=== PATIENT | female | born 1990 | race Caucasian/White ===

== ENCOUNTER → 2018-11-04 12:47 | Outpatient (CLI) | payer BC, SELFPAY ==
--- NOTE | 2018-11-04 12:56 | XR_ITS ---
XR hip LT 2-3V w/pelvis HISTORY: ITS.REASON: HIP PAIN,WEAKNESS, ORDERING PHYSICIAN: Cinthya Landon PATIENT AGE: 28 years COMPARISON: None FINDINGS: No fracture or dislocation is evident. No significant degenerative change. No lytic or blastic change. Unremarkable soft tissues IMPRESSION: Negative hip
== END ==
PROVIDERS: PCP Nurse Practitioner Family; Visit Provider Nurse Practitioner Family
DX: M25.552 Pain in left hip (principal); R29.898 Other symptoms and signs involving the musculoskeletal system; T74.91XD Unspecified adult maltreatment, confirmed, subsequent encounter
CPT/HCPCS: 73502

== ENCOUNTER → 2020-05-04 13:02 | Outpatient (CLI) | payer BC, SELFPAY ==
--- NOTE | 2020-05-04 13:10 | US_ITS ---
PROCEDURE: US TRANSVAGINAL CLINICAL INDICATION: US Pelvic pain COMPARISON: No exams were available for comparison FINDINGS: UTERUS: 8cm x 5cmx 4cm with a combined endometrial thickness of 2.2mm LEFT OVARY: [id number] with a volume of 1.7ml. RIGHT OVARY: [id number] with a volume of 5.5ml. Small bilateral ovarian follicles with no dominant adnexal mass or cul-de-sac fluid IMPRESSION: Negative pelvic ultrasound Dictated by: Ash Gray MD 05/04/2020 18:01 Ash Gray MD in [place] 05/04/2020 18:01
== END ==
PROVIDERS: PCP Emergency Medicine; Visit Provider Obstetrics & Gynecology
DX: R10.2 Pelvic and perineal pain (principal)
CPT/HCPCS: 76830

== ENCOUNTER → 2020-06-02 11:45 | Outpatient (CLI) | payer BC, SELFPAY ==
[2020-06-02 13:10] LABS: Basophils % 0.2 % (0.1-2.0); Eosinophils # 0.2 K/mm3 (0.0-0.4); Eosinophils % 1.8 % (0.1-12.0); Hematocrit 46.3 % (37.0-47.0); Hemoglobin 15.2 g/dL (12.2-16.2); Lymphocytes # 2.2 K/mm3 (0.7-4.5); Lymphocytes % 24.5 % (10-50); Mean Corpuscular HGB Conc 32.9 g/dL (31.8-35.4); Mean Corpuscular Volume 100.4 fl (81-99); Monocytes # 0.3 K/mm3 (0.1-1.0); Monocytes % 3.5 % (1.7-9.3); Neutrophils # 6.3 K/mm3 (1.8-7.8); Platelet Count 243 K/mm3 (142-424); Red Blood Count 4.61 M/mm3 (4.20-5.40); Red Cell Distribution Width 13.7 % (11.5-17.5); White Blood Count 8.9 K/mm3 (4.8-10.8)
[2020-06-02 13:19] LABS: HCG Qualitative, Serum Negative (Negative)
[2020-06-02 13:21] LABS: Alanine Aminotransferase 17 U/L (12-78); Albumin Level 4.6 g/dl (3.5-5.0); Albumin/Globulin Ratio 1.4 (1.1-1.8); Alkaline Phosphatase 53 U/L (38-126); Anion Gap 14.9 mEq/L (5-15); Aspartate Amino Transferase 24 U/L (14-36); Bilirubin,Total 0.5 mg/dl (0.2-1.3); Blood Urea Nitrogen 5 mg/dl (7-17); Calcium 9.6 mg/dl (8.4-10.2); Carbon Dioxide 25 mmol/L (22.0-30.0); Chloride 106 mmol/L (98-107); Estimated Glomerular Filt Rate 84 ml/min (>60); GFR (African American) 101 ML/MIN (>60); Globulin 3.2 g/dL (1.3-3.2); Glucose 90 mg/dl (74-100); Potassium 3.9 mmoL/L (3.5-5.1); Sodium 142 mmol/L (136-145); Total Protein,Serum 7.8 g/dl (6.3-8.2)
[2020-06-02 14:34] LABS: Coronavirus 19 IgG Antibody Negative (Negative); Coronavirus 19 IgM Antibody Negative (Negative)
[2020-06-02 14:39] LABS: Amphetamine/Metha Screen,Urine Negative ng/ml (<1000); Benzodiazepines Screen,Urine Negative ng/ml (<200)
[2020-06-02 14:40] LABS: Barbiturates Screen,Urine Negative ng/ml (<200)
[2020-06-02 14:41] LABS: Cannabinoid Screen,Urine Negative ng/ml (<50); Cocaine Screen,Urine Negative ng/ml (<300)
[2020-06-02 14:42] LABS: Methadone Screen,Urine Negative ng/ml (<300); Opiate Screen,Urine Negative ng/ml (<300)
[2020-06-02 14:43] LABS: Phencyclidine Screen,Urine Negative ng/ml (<25)
== END ==
PROVIDERS: Visit Provider Obstetrics & Gynecology
DX: Z01.818 Encounter for other preprocedural examination (principal); R10.2 Pelvic and perineal pain; N93.8 Other specified abnormal uterine and vaginal bleeding; N94.6 Dysmenorrhea, unspecified
CPT/HCPCS: 36415; 80053; 80305; 84703; 85025; 86328

== ENCOUNTER 2020-06-05 06:12 | Day surgery (SDC) | payer BC, SELFPAY ==
[2020-05-31 10:14] VITALS: BMI 20.5
[2020-06-05] VITALS (12 sets, daily range): BP systolic 114–141; BP diastolic 70–82; PULSE 67–108; RESP 15–20; TEMP 36.2–36.7; O2SAT 97–100
[2020-06-05 06:42] LABS: Barbiturates Screen,Urine Negative ng/ml (<200)
[2020-06-05 06:43] LABS: Amphetamine/Metha Screen,Urine Negative ng/ml (<1000); Benzodiazepines Screen,Urine Negative ng/ml (<200)
[2020-06-05 06:44] LABS: Cannabinoid Screen,Urine Negative ng/ml (<50); Methadone Screen,Urine Negative ng/ml (<300)
[2020-06-05 06:45] LABS: Cocaine Screen,Urine Negative ng/ml (<300)
[2020-06-05 06:46] LABS: Opiate Screen,Urine Negative ng/ml (<300); Phencyclidine Screen,Urine Negative ng/ml (<25)
--- NOTE | 2020-06-05 07:03 | HMH.ANESCL ---
[facility] Anesthesia Checklist - Patient Identification Patient Identification: Arm Band, Verbal (Name & ) - Structural Data Admitted From: Home Planned Operative Procedure/s: btl, d and c Consent for Planned Operative Procedure(s) Verified: Yes Verified Documents: History and Physical - NPO Status Verified Time NPO: 00:00 - Chart Verification Results Verified: CBC, BMP - Additional verifications Patient : No Anesthesia Reactions: No Hx Blood Transfusions: No Blood Transfusion Reaction: No Cephalosporin Allergy: No Previous Colonoscopy: No - Cardiovascular Assessment Heart Sounds: S1 & S2 Pulse Strength: Baseline Pulse Rhythm: Regular Peripheral Edema: No - Airway Assessment C-Spine Mobility Assessed: Yes TMJ Mobility Assessed: Yes Dentition: Poor Dentition - Neurological Assessment Level of Consciousness: Awake, Alert, Appropriate Hx Seizures: No Numbness or tingling in extremities: No - Anesthesia Plan Anesthesia Risk discussed: Yes Anesthesia Plan: Verified ASA Class: II Anesthesia Type: General [facility] History I have reviewed the patient's past medical history: Yes Medical History: Denies:: Cancer, Diabetes Mellitus Type 1, Diabetes Mellitus Type 2, MRSA, Seizures *Have you ever received a pneumonia vaccine?: No *Have you received a flu vaccine this season?: No Other Medical History: Denies: Blood Transfusion Reaction Anesthesia experience/problems:: none Laterality Cases: Bilateral: Myringotomy (Ear Tubes) Amputation: No Fractures: No - *Social History Last grade of school completed: High school graduate Smoking Status: Current every day smoker Tobacco Type: cigarettes # Packs/Day (cigarettes): 1 Alcohol Intake: current Alcohol Intake Frequency:: holidays/special occasions only Substance Use Type: denies use *Occupational Status:: employed Housing: house Household Members: significant other *Travel in the last 8 weeks: None Family Hx:: Cancer, Heart Attack, Stroke, Other
--- NOTE | 2020-06-05 09:48 | P.PN_ITS ---
[facility] Anesthesia Record Part I Intake, IV Amount: 900 Estimated blood loss (mL): 10 Urine output (mL): 20 Blood Products used (#): none Blood Pressure: 114/71 SaO2: 99 Pulse Rate: 77 Respiratory Rate: 20 Temperature: 97.2 F Patient is:: Drowsy, Stable Stable to PACU at:: 09:47
--- NOTE | 2020-06-05 10:24 | HMH.OPNOTE ---
Date of procedure: 06/05/20 Pre-op Diagnosis:: Heavy menstrual bleeding, dysfunctional uterine bleeding, desired sterilization Post-op Diagnosis:: same Procedure performed:: 1. Laparoscopic tubal ligation 2. D&C Hysteroscopy 3. Novasure endometrial ablation 4. Nexplanon removal Surgeon:: Sobeida Gaytan MD CABINET BUILDER:: Chao Cruzty Anesthesia: GETA Estimated blood loss (mL): 10 Operative findings:: grossly normal uterine cavity grossly normal fallopian tubes and ovaries bilaterally Operative note:: LAPAROSCOPY: The patient was taken to the operating room and general anesthesia was administered. She was prepped/draped in lithotomy position. A uterine manipulator was placed without difficulty. Gloves were changed and attention was turned to the abdomen. A 5mm skin incision was made in the umbilical fold and the verees needle was inserted through the peritoneum and into the abdominal cavity in standard fashion. The abdomen was insufflated with CO2 gas. A 5mm non-bladed trocar was inserted directly into the abdominal cavity and appropriate placement was confirmed with the laparoscope. No intra-abdominal injuries occurred during entry into the abdominal cavity, as confirmed visually with the laparoscope. The patient was placed in trendelenburg and a 8mm skin incision was made 2cm above the pubic symphysis. A 8mm non-bladed trocar was inserted under direct visualization, without complication. The uterus was elevated out of the pelvis in order to better visualize the anatomy. A survey of the pelvis and abdomen revealed the findings noted above. Filshie clips were applied to the left and right fallopian tube without complication. Clips were noted to occlude the tubes completely. The abdomen was then evacuated of gas and all trocars removed. The skin incisions were closed with 4-0 monocryl. HYSTEROSCOPY: Attention was then turned to the vagina, and the uterine manipulator was removed. The anterior lip of the cervix was grasped with a single tooth tenaculum and the cervix was dilated with Colmenares dilators of serially increasing size until the external os was able to accomodate the Myosure hysteroscope. The hysteroscope was advanced through the cervix and into the uterine cavity, which was distended with LR. Once the uterus was sufficiently distended, the cavity was evaluated and revealed a grossly normal cavity, with no polyps or fibroids noted. Sharp curettage was performed and the specimen sent for pathology. The uterine cavity sounded to a length of 4.5cm with a width of 3.1cm. The Novasure was inserted through the cervix and expanded to fit the width of the uterus. The device was deployed and the endometrial ablation was completed in 78 seconds. Once the device had turned off, the Novasure was removed from the uterus and the hysteroscope was reinserted into the uterine cavity. The cavity appeared diffusely cauterized. The hysteroscope was removed from the uterus and all instruments removed from the vagina. The tenaculum site was hemostatic. NEXPLANON REMOVAL: The left upper extremity was prepped with hibiclense. The inferior edge of the nexplanon was identified and a 1cm incision was made over this area. The Nexplanon was extracted from the subcutaneous tissue and removed, intact. The incision was closed with 4-0 monocryl, and steri-strips applied. All sponge/lap/needle/instrument counts correct for all procedures. Total EBL: 10 cc. The patient was taken out of lithotomy position, extubated and taken to the PACU in stable condition. Condition: stable Disposition: PACU Specimens:: Endometrial curettings Nexplanon Complications:: None
--- NOTE | 2020-06-05 10:33 | HMH.ANESII ---
[facility] Anesthesia Record Part II Discharge Time: 10:17 Destination: Surgical Day Care (OP Surgery) PACU nurse assessment reviewed?: Yes Patient Condition:: Good Anesthesia Complications:: None Swallowing reflex intact?: Yes Cyanosis?: No Blood Pressure: 116/70 Pulse Rate: 68 Temperature: 97.9 F Mental Status: Alert & Oriented Pain level:: 6 Nausea and/or vomitting:: None Intake, IV Amount: 25
== END 2020-06-05 11:20 | disposition home or self-care (01) ==
PROVIDERS: PCP Emergency Medicine; Visit Provider Obstetrics & Gynecology
PROC: 0U5B8ZZ Destruction of Endometrium, Via Natural or Artificial Opening Endoscopic (ICD-10-PCS; CPT 58563; principal; 2020-06-05 08:00)
DX: Z30.2 Encounter for sterilization (principal); N92.0 Excessive and frequent menstruation with regular cycle; N93.8 Other specified abnormal uterine and vaginal bleeding; N94.6 Dysmenorrhea, unspecified; Z30.432 Encounter for removal of intrauterine contraceptive device; Z72.0 Tobacco use; Z80.9 Family history of malignant neoplasm, unspecified; Z82.3 Family history of stroke; Z84.89 Family history of other specified conditions
CPT/HCPCS: 58563; 58671; 58562; 80305; 96374; J2405; J2710

== ENCOUNTER 2020-07-13 15:08 | Emergency (ER) | payer BC, SELFPAY ==
[2020-07-13 15:23] VITALS: BP 130/59; PULSE 96; RESP 20; O2SAT 96; BMI 20.2
--- NOTE | 2020-07-13 15:57 | XR_ITS ---
PROCEDURE: XR FACIAL BONES MIN 3V CLINICAL INDICATION: TRIPPED OVER BABY GATE Right-sided facial injury with pain COMPARISON: No exams were available for comparison FINDINGS: No fracture or dislocation. No lytic or blastic change. There is normal mineralization. No sinus air-fluid level. IMPRESSION: No acute fracture. Consider CT for more thorough evaluation if symptoms persist. Dictated by: Ash Gray MD 07/13/2020 16:32 Ash Gray MD in [place] 07/13/2020 16:32
--- NOTE | 2020-07-13 16:15 | HMH.EDUTC ---
[facility] Disposition Clinical Impression: Facial pain Disposition: Home, Self-Care Condition on Discharge: Good Instructions: DI for Eye Pain Additional Instructions: Follow up with your primary care doctor. If your symptoms continue, you might need a ct scan of your facial bones. Your primary care doctor or the ER would have to order this. So f/u if you continue to have symptoms. GO TO THE ER FOR ANY WORSENING SYMPTOMS OR CONCERNS Prescriptions: Ibuprofen [Ibuprofen 600mg Tablet] 600 mg PO Q6HP PRN #30 tab PRN Reason: Mild Pain Transmission Status: Received by [id number] Referrals: Singh Oliva MD [Primary Care Provider] - Time of Disposition: 16:29 Medical Decision Making - Medical Records Medical records reviewed: No: I reviewed the patient's medical records. - Chad Inquiry Pt receiving controlled substance: No Vital Signs: 07/13/20 15:23 07/13/20 16:41 Temperature 98.0 F Temperature Source Oral Pulse Rate 96 H Pulse Rate [Radial] 96 H Respiratory Rate 20 20 Blood Pressure 130/59 L Blood Pressure [Right Arm] 130/59 L Blood Pressure Mean [Right Arm] 82 Blood Pressure Source Automatic Cuff Blood Pressure Source [Right Arm] Automatic Cuff Blood Pressure Position Sitting Blood Pressure Position [Right Arm] Sitting 02 Sat by Pulse Oximetry 96 Oxygen Delivery Method Room Air Room Air - Radiology Data #1 Image(s): Other (facial bones) Image Reviewed: Yes I reviewed the patient's radiology image Preliminary Findings: No Fracture Seen [facility] HPI - General Stated complaint: AO Facial discount 07/06 Time Seen by Provider: 07/13/20 16:18 Mode of Arrival: Ambulatory Source of Information: Patient Limitations: No Limitations Description of Symptoms (Recalled from Triage Doc. by RN): fell last week and hit the corner of right eye on a chair. states it bruised but now she has a knot and it hurts. HEENT Symptoms (Recalled from RN notes): No Resp Symptoms (Recalled from RN notes): No Skin Symptoms (Recalled from RN notes): No MS Symptoms (Recalled from RN notes): Yes Functional Status (Recalled from RN notes): wnl - History of Present Illness Provider Complaint: She states that she fell about a week ago. She tripped over a baby gate and fell forward into a chair. The chair hit her just below her right eye. Since then she has had pain and tenderness of the area just below her right eye. She denies any vision changes. - Related Data Home Medications Medication Instructions Recorded Confirmed etonogestrel 68 mg subdermal 68 mg SUBDERMAL DAILY 05/10/20 06/05/20 implant Previous Rx's Medication Instructions Recorded acetaminophen 300 mg-codeine 30 mg 1 tab PO Q6H PRN #14 tab 06/05/20 tablet Ibuprofen [Ibuprofen 600mg 600 mg PO Q6HP PRN #30 tab 07/13/20 Tablet] Allergies Allergy/AdvReac Type Severity Reaction Status Date / Time Penicillins Allergy Verified 06/05/20 06:28 - Worker's Comp Is this a Worker's Comp case?: No [facility] History - Hepatitis A Screen Drug use history?: No High risk sexual behaviors?: No History of sexually transmitted infection?: No Currently employed?: No Childcare worker?: No Do you have indoor plumbing?: Yes Do you have electricity?: Yes Attestation statement:: This patient has been screened for Hepatitis A risk factors. I have reviewed the patient's past medical history: Yes Medical History: Denies:: Cancer, Diabetes Mellitus Type 1, Diabetes Mellitus Type 2, MRSA, Seizures Other Medical History: Denies: Blood Transfusion Reaction Laterality Cases: Bilateral: Myringotomy (Ear Tubes) Amputation: No Fractures: No - Social History Smoking Status: Current every day smoker Tobacco Type: cigarettes # Packs/Day (cigarettes): 1 Alcohol Intake: never Alcohol Intake Frequency:: holidays/special occasions only Substance Use Type: denies use Occupational Status: other Housing: house Househol
[2020-07-13 16:41] VITALS: BP 130/59; PULSE 96; RESP 20; TEMP 36.7; O2SAT 96
== END 2020-07-13 16:43 | disposition home or self-care (01) ==
PROVIDERS: Emergency Provider Nurse Practitioner Family; PCP Emergency Medicine
DX: S00.83XA Contusion of other part of head, initial encounter (principal); W01.190A Fall on same level from slipping, tripping and stumbling with subsequent striking against furniture, initial encounter; Y92.019 Unspecified place in single-family (private) house as the place of occurrence of the external cause; F17.210 Nicotine dependence, cigarettes, uncomplicated
CPT/HCPCS: 70150; 99201

== ENCOUNTER 2020-08-14 09:52 | Emergency (ER) | payer BC, SELFPAY ==
[2020-08-14 10:30] VITALS: BP 103/84; PULSE 104; RESP 18; TEMP 36.6; O2SAT 98; BMI 20.2
--- NOTE | 2020-08-14 10:54 | HMH.EDUTC ---
[facility] [place] Clinical Impression: Encounter for laboratory testing for COVID-19 virus Sinusitis Qualifiers: Sinusitis location: unspecified location Chronicity: unspecified Qualified Code(s): J32.9 - Chronic sinusitis, unspecified Disposition: Home, Self-Care Condition on Discharge: Good Instructions: Sinusitis, DI for Sinusitis, DI for COVID-19 (Suspected or Confirmed ), COVID-19: Testing and Tracing, Preventing the Spread of Coronavirus Discharge Instructions Additional Instructions: *Monitor Temp, Over the counter Motrin or Tylenol as directed/as needed Tylenol every 4 hours and Motrin every 6 hours (as long as your family doctor has told you that you can take it) for fever or pain. and straight to ER if unable to lower temp less than 101.0 after medication given *Warm salt water gargles may help to soothe the throat *Throat Lozenges *Warm fluids like tea with honey may help to soothe the throat *Sleep elevated *Humidifier/Vaporizer *Flonase 2 sprays in each nostril daily but be aware that it may take 2-3 days before you notice improvement Follow up IMMEDIATELY for new or worsening symptoms or no Noticeable improvement over the next 48-72 hours. 911 for difficulty breathing or swallowing You were tested for today for COVID19 your test result should be back in the next 24-48 hours, you may call to the [facility] to see if your test results are back in the next 48 hours [phone] [facility] hours are 9am-9pm You was given a handout with instructions for Self Quarantine and Self isolation for while you wait on test results and what to do if they are positive If you are positive the Health Dept will be contacting you also Prescriptions: Fluticasone Propionate [Flonase 50mcg nasal spray 16gm] 1 spr NS DAILY #1 bottle Transmission Status: Pending to [facility] methylPREDNISolone [Medrol 4mg tab] 4 mg PO DIRECTED #21 tab Transmission Status: Pending to [facility] Azithromycin [Z-Ignacio 250mg Tab] 250 mg PO DIRECTED #6 tab Transmission Status: Pending to [facility] Referrals: Chao Regan MD [Primary Care Provider] - As needed Forms: Work/School Release Time of Disposition: 10:58 Medical Decision Making - Chad Inquiry Pt receiving controlled substance: No Chad was queried for this patient: No Vital Signs: 08/14/20 10:30 Temperature 97.8 F Temperature Source Oral Pulse Rate [Right Brachial] 104 H Respiratory Rate 18 Blood Pressure [Right Arm] 103/84 L Blood Pressure Mean [Right Arm] 90 Blood Pressure Source [Right Arm] Automatic Cuff Blood Pressure Position [Right Arm] Sitting 02 Sat by Pulse Oximetry 98 Oxygen Delivery Method Room Air Orders (Tests/Meds): ORDERS Category Date Time Status Covid-19 Nasal PCR ([facility]) Routine Lab 08/14/20 10:[address] [facility] UTC HPI - General Stated complaint: possibler covid exposure w/ symtoms Time Seen by Provider: 08/14/20 10:54 Mode of Arrival: Ambulatory Source of Information: Patient Limitations: No Limitations Description of Symptoms (Recalled from Triage Doc. by RN): REQUESTING COVID TEST D/T EXPOSURE; C/O SINUS DRAINAGE X 2 DAYS HEENT Symptoms (Recalled from RN notes): Yes Resp Symptoms (Recalled from RN notes): No Skin Symptoms (Recalled from RN notes): No MS Symptoms (Recalled from RN notes): No Functional Status (Recalled from RN notes): WNL - History of Present Illness Provider Complaint: Patient states that she has been having sinus pain and pressure on and off for a couple of weeks State that she was recently around someone that tested positive for COVID and it has since felt worse States that she is having pressure behind her eyes and thick yellowish green mucous States that she has a child at home with healt issues and wanted to get tested - Related Data Home Medications Medication Instructions Recorded Confirmed etonogestrel 68 mg subdermal 68 mg SUBDERMAL DAILY 05/10/20 06/05/20 implant Prev
[2020-08-14 10:55] VITALS: BP 103/84; PULSE 104; RESP 18; TEMP 36.6; O2SAT 98
== END 2020-08-14 11:00 | disposition home or self-care (01) ==
PROVIDERS: Emergency Provider Nurse Practitioner; PCP Family Medicine
DX: Z20.822 Contact with and (suspected) exposure to COVID-19 (principal); J32.9 Chronic sinusitis, unspecified; F17.210 Nicotine dependence, cigarettes, uncomplicated; Z88.0 Allergy status to penicillin
CPT/HCPCS: 99202; G0463; U0003

== ENCOUNTER 2021-07-19 16:58 | Emergency (ER) | payer OTHER, BC, SELFPAY ==
[2021-07-19 17:00] VITALS: BP 131/101; PULSE 115; RESP 22; TEMP 36.9; O2SAT 99; BMI 21.7
--- NOTE | 2021-07-19 19:08 | PC.NURSE ---
SALOME WILEY at suturing
[2021-07-19 19:14] VITALS: BP 127/74; PULSE 78; RESP 16; TEMP 36.8; O2SAT 100
--- NOTE | 2021-07-19 19:19 | HMH.EDGENADL ---
ED Disposition Clinical Impression: Laceration Disposition: Home, Self-Care Condition on Discharge: Good Instructions: DI for Laceration Repair Additional Instructions: Please limit excessive wrist flexion and extension until your laceration is healed. Please make an appointment with your primary care doctor in 7 to 14 days for stitch removal and wound check. He may return to work in full capacity after stitches have been removed. Referrals: Singh Oliva MD [Primary Care Provider] - - Critical Care Critical Care Time: No Attestation: On 07/19/21, the high probability of a clinically significant, sudden or life threatening deterioration of the following system(s) required my full and direct attention, intervention and personal management. The time I documented below is in addition to time spent performing reported procedures but includes the following listed in this critical care notation. Medical Decision Making - Chad Inquiry Pt receiving controlled substance: No Vital Signs: 07/19/21 17:00 07/19/21 19:14 Temperature 98.5 F 98.2 F Temperature Source Oral Pulse Rate 78 Pulse Rate [Right Radial] 115 H Respiratory Rate 22 16 Blood Pressure 127/74 Blood Pressure [Right Arm] 131/101 H Blood Pressure Mean [Right Arm] 111 Blood Pressure Source [Right Arm] Automatic Cuff Blood Pressure Position [Right Arm] Sitting 02 Sat by Pulse Oximetry 99 Oxygen Delivery Method Room Air Medical Decision Narrative: Patient is a 30yo female presenting w/cc of left wrist laceration. Differential diagnosis includes, but is not limited to, simple laceration, complex laceration, tendon injury, neurovascular injury. On initial exam, patient is neurovascularly intact without any motor or sensory deficits. Laceration was repaired in the emergency department and presentation is consistent with a simple laceration. Patient was given wound care instructions and discharged in a stable condition. General Adult HPI - General Chief complaint: Wound/Laceration Stated complaint: left wrist lac Time Seen by Provider: 07/19/21 17:15 Mode of Arrival: Ambulatory Limitations: No Limitations Description of Symptoms (Recalled from ER Triage Doc. by RN): Pt presents to ED with a lac to left wrist. Pt states that she cut it on a blade at work. 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 Patient reports pain and bleeding to her right wrist but denies any deficit in motor function, no sensory deficits. No other injuries or concerns. - Related Data Home Medications Medication Instructions Recorded Confirmed etonogestrel 68 mg subdermal 68 mg SUBDERMAL DAILY 05/10/20 06/05/20 implant Previous Rx's Medication Instructions Recorded acetaminophen 300 mg-codeine 30 mg 1 tab PO Q6H PRN #14 tab 06/05/20 tablet Ibuprofen [Ibuprofen 600mg 600 mg PO Q6HP PRN #30 tab 07/13/20 Tablet] Azithromycin [Z-Ignacio 250mg Tab] 250 mg PO DIRECTED #6 tab 08/14/20 Fluticasone Propionate [Flonase 1 spr NS DAILY #1 bottle 08/14/20 50mcg nasal spray 16gm] methylPREDNISolone [Medrol 4mg 4 mg PO DIRECTED #21 tab 08/14/20 tab] Allergies Allergy/AdvReac Type Severity Reaction Status Date / Time Penicillins Allergy Verified 06/05/20 06:28 [facility] History - Hepatitis A Screen Drug use history?: No High risk sexual behaviors?: No History of sexually transmitted infection?: No Currently employed?: No Childcare worker?: No Do you have indoor plumbing?: Yes Do you have electricity?: Yes Attestation statement:: This patient has been screened for Hepatitis A risk factors. Medical History: Denies:: Cancer, Diabetes Mellitus Type 1, Diabetes Mellitus Type 2, MRSA, Seizures Other Medical History: Denies: Blood Transfusion Reaction Laterality Cases: Bilateral: Myringotomy (Ear Tubes) Amputation: No
== END 2021-07-19 19:22 | disposition home or self-care (01) ==
LOC: ER 17:04
PROVIDERS: Emergency Provider Emergency Medicine; PCP Emergency Medicine
DX: S61.512A Laceration without foreign body of left wrist, initial encounter (principal); W31.89XA Contact with other specified machinery, initial encounter; Y92.89 Other specified places as the place of occurrence of the external cause; F17.210 Nicotine dependence, cigarettes, uncomplicated
CPT/HCPCS: 12001; 99282

== ENCOUNTER 2021-11-05 18:47 | Emergency (ER) | payer BC, SELFPAY ==
[2021-11-05 18:49] VITALS: BP 120/73; PULSE 96; RESP 16; TEMP 36.6; O2SAT 100; BMI 20.1
--- NOTE | 2021-11-05 19:00 | XR_ITS ---
PROCEDURE INFORMATION: Exam: XR Right Foot Exam date and time: 11/05/2021 7:14 PM Age: 31 years old Clinical indication: Injury or trauma; Blunt trauma; Patient HX: Right foot pain due to fall. ; Additional info: Trauma/pain TECHNIQUE: Imaging protocol: XR Right foot. Views: 3 or more views. COMPARISON: No relevant prior studies available. FINDINGS: Bones/joints: No fracture. Normal alignment. There is a small calcaneal spur. Soft tissues: Normal. IMPRESSION: No acute findings.
--- NOTE | 2021-11-05 19:00 | XR_ITS ---
PROCEDURE INFORMATION: Exam: XR Right Ankle Exam date and time: 11/05/2021 7:16 PM Age: 31 years old Clinical indication: Injury or trauma; Fall; Blunt trauma; Patient HX: Patient fell, right ankle pain. Shielded. ; Additional info: Trauma/pain TECHNIQUE: Imaging protocol: XR Right ankle. Views: 3 or more views. COMPARISON: CR XR FOOT RT MIN 3V 11/05/2021 7:14 PM FINDINGS: Bones/joints: There is a 3 mm well-corticated ossicle lateral to the talus which may be secondary to a prior injury. There is no acute fracture. The mortise is intact. There is small calcaneal spur. Soft tissues: Normal. IMPRESSION: No acute fracture.
--- NOTE | 2021-11-05 19:01 | HMH.EDGENADL ---
ED Disposition Clinical Impression: Foot fracture, right Qualifiers: Encounter type: initial encounter Fracture type: closed Qualified Code(s): S92.901A - Unspecified fracture of right foot, initial encounter for closed fracture Disposition: Home, Self-Care Condition on Discharge: Good Instructions: DI for Foot Fracture Additional Instructions: follow up podiatry Prescriptions: Hydrocodone/Acetaminophen [Hydrocodone-Acetamin 5-325 mg] 1 tab PO TID PRN #10 tab PRN Reason: Moderate To Severe Pain Transmission Status: Sent to [id number] Referrals: Candelaria Tolentino DPM [Staff Physician] - - Critical Care Critical Care Time: No Attestation: On 11/05/21, the high probability of a clinically significant, sudden or life threatening deterioration of the following system(s) required my full and direct attention, intervention and personal management. The time I documented below is in addition to time spent performing reported procedures but includes the following listed in this critical care notation. Medical Decision Making - Medical Records Medical records reviewed: Yes: I reviewed the patient's medical records. - Chad Inquiry Pt receiving controlled substance: Yes Chad was queried for this patient: Yes Risks and benefits of using a controlled substance: were discussed with pt by me Vital Signs: 11/05/21 18:49 Temperature 97.9 F Temperature Source Oral Pulse Rate [Right] 96 H Respiratory Rate 16 Blood Pressure [Right Arm] 120/73 Blood Pressure Mean [Right Arm] 88 Blood Pressure Source [Right Arm] Automatic Cuff 02 Sat by Pulse Oximetry 100 Oxygen Delivery Method Room Air Orders (Tests/Meds): ORDERS Category Date Time Status Foot XR right minimum 3 views [XR foot RT min 3V] Stat Exams 11/05/21 19:00 Taken XR ankle RT min 3V Stat Exams 11/05/21 19:00 Taken General Adult HPI - General Stated complaint: AO 0329@1800 injured R ankle Time Seen by Provider: 11/05/21 19:01 - History of Present Illness HPI narrative: rt ankle an foot pain after fall on step today Onset (ago): hour(s) Radiation: extremity Severity: moderate Consistency: constant Relieving factors: immobilization Exacerbating factors: movement Associated symptoms: denies other symptoms - Related Data Previous Rx's Medication Instructions Recorded Hydrocodone/Acetaminophen 1 tab PO TID PRN #10 tab 11/05/21 [Hydrocodone-Acetamin 5-325 mg] Allergies Allergy/AdvReac Type Severity Reaction Status Date / Time Penicillins Allergy Verified 07/29/21 13:09 [facility] History - Hepatitis A Screen Attestation statement:: This patient has been screened for Hepatitis A risk factors. Medical History: Denies:: Cancer, Diabetes Mellitus Type 1, Diabetes Mellitus Type 2, MRSA, Seizures Other Medical History: Denies: Blood Transfusion Reaction Laterality Cases: Bilateral: Myringotomy (Ear Tubes) Amputation: No Fractures: No - Social History Smoking Status: Current every day smoker Tobacco Type: cigarettes # Packs/Day (cigarettes): 1 Alcohol Intake: never Alcohol Intake Frequency:: holidays/special occasions only Substance Use Type: denies use Occupational Status: other Housing: house Household Members: significant other Family Hx:: Cancer, Heart Attack, Stroke, Other ROS Obtained: Yes All systems reviewed & no additional complaints Physical Exam - General General appearance: alert, in no apparent distress - Respiratory Respiratory exam: Absent: respiratory distress, wheezes, stridor - Cardiovascular Cardiovascular exam: Present: regular rate. Absent: bradycardia, tachycardia - Extremities Exam Extremities exam: Present: full ROM, tenderness, normal capillary refill, other (rt ankle pain with rom, rt foot dorsum/midfoot pain with palp). Absent: joint swelling - Neurological Exam Neurological exam: Present: alert, oriented X3, CN II-XII intact. Absent: motor sensory deficit - Skin Skin
--- NOTE | 2021-11-05 19:20 | PC.NURSE ---
pt to XR
[2021-11-05 19:44] VITALS: BP 119/80; PULSE 90; RESP 16; TEMP 36.6; O2SAT 99
== END 2021-11-05 19:47 | disposition home or self-care (01) ==
PROVIDERS: Emergency Provider Emergency Medicine; PCP Emergency Medicine
DX: S92.901A Unspecified fracture of right foot, initial encounter for closed fracture (principal); W10.9XXA Fall (on) (from) unspecified stairs and steps, initial encounter; Y92.9 Unspecified place or not applicable; F17.210 Nicotine dependence, cigarettes, uncomplicated
CPT/HCPCS: 29515; 73610; 73630; 99283

== ENCOUNTER 2024-03-30 10:10 | Outpatient (CLI) | payer BC, SELFPAY ==
--- NOTE | 2024-03-30 10:36 | XR_ITS ---
FINAL REPORT TECHNIQUE: Chest PA & Lateral CLINICAL HISTORY: tachycardia, acute heart failure COMPARISON: None FINDINGS: 2 views of the chest were performed. The heart size is normal. The mediastinum is within normal limits. There is no acute cardiopulmonary process. There are no pleural effusions. There is no pneumothorax. The bony thorax appears intact. IMPRESSION: No acute cardiopulmonary process. Reviewed, Interpreted and Dictated by Santana Talbot MD Transcribed by Raeann Babcock Authenticated and [facility]
--- NOTE | 2024-03-30 10:45 | CA_ITS ---
APPROVED REPORT EXAM: Comprehensive 2D, Doppler, and color-flow Echocardiogram Inspector Bicycle: Sarah Shetty CRT Ht: 5 ft 2 in Wt: 99lbs BSA: 1.42 BP: 98/54 mmHg Indications: Palpitations, tachycardia, murmur, smoker, fatigue 2D Dimensions LA Volume 5.70 mL LA Volume Index 3.90 mL/m2 (M/F) 16-34 M-Mode Dimensions RVDd 1.88 cm (0.9-2.6) LA Diam 2.25 cm (1.9-4.0) LVDd 4.52 cm (3.5-5.7) LVDs 3.04 cm (3.5-5.7) IVSd 0.69 cm (0.6-1.1) PWd 0.34 cm (0.6-1.1) EF (Teich) 61.20% FS 32.70% EDV (Teich) 93.40 mL TAPSE 1.63 (<1.7) ESV (Teich) 36.20 mL LV Diastology E Decel Time 90 (160-240 msec) E/A Ratio 1.43 MED A' 9.50 cm/s LAT A' 9.40 cm/s Aortic Valve AO Peak GR. 3.00 mmHg Mitral Valve MV E Max Gonzalo. 59.0 (40-130 cm/s) MV A Velocity 41.0 (40-130 cm/s) E/A Ratio 1.43 MV PHT 26.0 ms Tricuspid Valve TR P. Velocity 116.00 cm/s RAP Estimate 10.00 mmHg RVSP 15.40 mmHg Left Ventricle The left ventricle is normal size. The left ventricular systolic function is low normal. There is normal left ventricular wall thickness. There is mild hypokinesis of the septal LV wall. The left ventricular diastolic function is normal. LVEF is 50%. Right Ventricle The right ventricle is not very well-visualized, but grossly appears normal in size and function. Atria The left atrium size is normal. The right atrium size is normal. Aortic Valve The aortic valve opens well. There is no aortic valvular stenosis. No aortic regurgitation is present. Mitral Valve The mitral valve is normal in structure. No evidence of mitral valve stenosis. There is no mitral valve regurgitation noted. Tricuspid Valve The tricuspid valve leaflets are thin and pliable. Trace tricuspid regurgitation. There is insufficient TR jet to estimate RVSP. Pulmonic Valve The pulmonary valve is normal in structure. Trace pulmonic regurgitation. Great Vessels The aortic root is normal in size. The ascending aorta is not well-visualized. IVC is normal in size and collapses >50% with inspiration. Pericardium There is no pericardial effusion. Other Information Study Quality: Fair Conclusion Low normal LV systolic function. Mild hypokinesis of the septal LV wall. The RV is not very well-visualized, but grossly appears normal in size and function. No significant valvular stenosis or regurgitation. In the setting of young age, known NSVT on rhythm monitoring, and low normal LVEF, further evaluation with cardiac MRI (cardiomyopathy protocol) is suggested. Electronically signed by : Mary Pompa MD 04/04/2024 12:10:42
[2024-03-30 11:31] LABS: Basophils % 0.6 % (0.1-2.0); Eosinophils # 0.1 K/mm3 (0.0-0.4); Eosinophils % 0.7 % (0.1-12.0); Hematocrit 46.1 % (37.0-47.0); Hemoglobin 15.1 g/dL (12.2-16.2); Lymphocytes % 30.6 % (10-50); Mean Corpuscular HGB Conc 32.7 g/dL (31.8-35.4); Mean Platelet Volume 9.5 fl (7.4-10.4); Monocytes # 0.3 K/mm3 (0.1-1.0); Monocytes % 4.7 % (1.7-9.3); Neutrophils # 4.1 K/mm3 (1.8-7.8); Neutrophils % 63.3 % (37.0-80.0); Platelet Count 211 K/mm3 (142-424); Red Blood Count 4.31 M/mm3 (4.20-5.40); Red Cell Distribution Width 13.5 % (11.5-17.5); White Blood Count 6.4 K/mm3 (4.8-10.8)
[2024-03-30 11:32] LABS: D-Dimer < 0.25 ug/mL (0.0-0.5)
[2024-03-30 12:30] LABS: Alanine Aminotransferase 36 U/L (12-78); Albumin Level 4.5 g/dl (3.5-5.0); Albumin/Globulin Ratio 1.3 (1.1-1.8); Alkaline Phosphatase 40 U/L (38-126); Anion Gap 14.9 mEq/L (5-15); Aspartate Amino Transferase 38 U/L (14-36); Bilirubin,Total 0.6 mg/dl (0.2-1.3); Blood Urea Nitrogen 15 mg/dl (7-17); Calcium 9.3 mg/dl (8.4-10.2); Carbon Dioxide 24 mmol/L (22.0-30.0); Chloride 105 mmol/L (98-107); Chol/HDL Ratio 4.5 (1-3.5); Cholesterol 187 mg/dl (140-200); Estimated Glomerular Filt Rate 71 ml/min (>60); GFR (African American) 86 ML/MIN (>60); Globulin 3.5 g/dL (1.3-3.2); Glucose 82 mg/dl (74-100); HDL Cholesterol 42 mg/dl (40-60); Potassium 3.9 mmoL/L (3.5-5.1); Sodium 140 mmol/L (136-145); Triglycerides 114 mg/dl (30-150); VLDL Cholesterol 23 mg/dL (0-40)
[2024-03-30 12:41] LABS: Direct LDL Cholesterol 112.63 mg/dL (100-129); NT Pro Brain Natriuretic Pep. 30.7 pg/mL (0-125)
[2024-03-30 12:47] LABS: 25-OH Vitamin D, Total 61.5 ng/mL (30-100)
[2024-03-30 12:50] LABS: Free Thyroxine Index 2.1 ug/dL (5.93-13.13); T4 (Thyroxine) 6.4 ug/dl (5.53-11.0); Triiodothryronine (T3) Uptake 33 % (23.5-40.5)
[2024-03-30 13:03] LABS: Thyroid Stimulating Hormone 0.61 uIU/mL (0.465-4.68)
[2024-03-30 13:32] LABS: HIV (1&2) Antibody Rapid NONREACTIVE (NONREACTIVE)
[2024-03-31 09:13] LABS: HCV Ab Non Reactive (Non Reactive)
== END 2024-03-30 23:59 | disposition home or self-care (01) ==
PROVIDERS: PCP Family Medicine; Visit Provider Family Medicine
DX: I50.9 Heart failure, unspecified (principal); R00.0 Tachycardia, unspecified; I51.7 Cardiomegaly; R53.83 Other fatigue; R45.0 Nervousness; Z11.4 Encounter for screening for human immunodeficiency virus [HIV]; Z00.00 Encounter for general adult medical examination without abnormal findings
CPT/HCPCS: 36415; 71046; 80050; 80053; 80061; 82306; 83036; 83880; 84436; 84443; 84479; 85025; 85378; 93306

== ENCOUNTER 2024-03-31 12:47 | Outpatient (CLI) | payer BC, SELFPAY | END 2024-03-31 23:59 | disposition home or self-care (01) | LOC: RT 12:48 | PROVIDERS: PCP Family Medicine; Visit Provider Family Medicine | DX: R00.0 Tachycardia, unspecified (principal) | CPT/HCPCS: 93270 ==